=== PATIENT | female | born 1970 | race Asian ===

== ENCOUNTER → 2017-02-17 | Outpatient (CLI) | payer BC, OTHER ==
--- NOTE | 2017-02-18 08:59 | DIAGNOSTIC IMAGING REPORT ---
CHEST 2 VIEWS ROUTINE CLINICAL HISTORY: NON SPECIFIC REACTION TO CELL AMIDATED IMMUNITY dyspnea COMPARISON STUDY: No previous studies for comparison. FINDINGS: The bones soft tissues and hemidiaphragms are normal. The cardiomediastinal silhouette is normal. The lungs are clear. The pulmonary vasculature is normal. IMPRESSION: Negative chest. Electronically signed by: Jhon Ordoñez M.D. 02/18/2017 8:57 AM Dictated Date/Time: 02/18/2017 8:56 AM
== END | disposition home or self-care (01) ==
LOC: C.RAD1850 15:00
PROVIDERS: ATTEND Family Medicine
DX: R76.12 Nonspecific reaction to cell mediated immunity measurement of gamma interferon antigen response without active tuberculosis (principal)